=== PATIENT | male | born 1965 | race Caucasian/White ===

== ENCOUNTER 2021-04-11 19:28 | Inpatient (IN) ==
[2021-04-11 20:49] LABS: ABS Basophils 0.1 10^3/ul (0-0.2); ABS Monocytes 0.8 10^3/ul (0-0.8); ABS Neutrophils 5.2 10^3/ul (1.5-7.7); Eosinophil % 0.4 %; Hematocrit 40 % (42-52); Hemoglobin 13.3 g/dL (14.0-18.0); Lymphocyte % 14.7 %; Mean Corpuscular HGB Conc 33 g/dL (31-36); Mean Corpuscular Hemoglobin 28 pg (27-31); Mean Corpuscular Volume 84 fL (80-94); Mean Platelet Volume 7.3 fL (7.4-10.4); Platelet Count 292 10^3/uL (150-450); Red Blood Count 4.76 10^6 /uL (4.18-5.48); Red Cell Distribution Width 18 % (10-15); White Blood Count 7.1 10^3/uL (3.5-10.8)
[2021-04-11 21:39] LABS: TSH Ultra Thyroid Stim Horm 3.43 mcIU/mL (0.34-5.60)
[2021-04-11 21:51] LABS: Alcohol, S < 13 mg/dL (<13); Salicylate < 2.50 mg/dL (<30)
[2021-04-11 22:10] LABS: ALT 17 U/L (7-52); AST 21 U/L (13-39); Albumin/Globulin Ratio 1.3 (1-3); Alkaline Phosphatase 118 U/L (35-149); Anion Gap 14 mmol/L (2-11); Blood Urea Nitrogen 8 mg/dL (6-24); CO2 Carbon Dioxide 25 mmol/L (22-32); Calcium 9.8 mg/dL (8.6-10.3); Chloride 98 mmol/L (101-111); Globulin 3.1 g/dL (2-4); Glucose 107 mg/dL (70-100); Potassium 3.2 mmol/L (3.5-5.0); Sodium 137 mmol/L (135-145); Total Protein 7.1 g/dL (6.4-8.9)
[2021-04-11 22:12] LABS: Acetaminophen < 15 mcg/mL
[2021-04-12 04:47] LABS: Urine Appearance Clear; Urine Bilirubin Negative (Negative); Urine Blood Negative (Negative); Urine Color Amber; Urine Glucose Negative (Negative); Urine Ketones 1+ (Negative); Urine Nitrite Negative (Negative); Urine Protein 1+(30 mg/dL) (Negative); Urine Specific Gravity 1.017 (1.002-1.030); Urine Urobilinogen Negative (Negative)
[2021-04-12 04:51] LABS: Urine Bacteria 1+ (Absent); Urine Red Blood Cell 1+(3-5/hpf) (Absent); Urine Squamous Epithelial Cell Present (Absent); Urine White Blood Cell Trace(0-5/hpf) (Absent)
[2021-04-12 05:23] LABS: Urine Benzodiazepine Screen Presumptive Positive (None Detect); Urine Cannabinoids Screen None Detected (None Detect); Urine Opiates Screen None Detected (None Detect)
[2021-04-12] MEDS ORDERED: Al Hydrox/Mg Hydrox/Simet LIQ 30 ML UDC PO PRN (09:05)
[2021-04-12 09:59] LABS: Rapid COVID-19 Molecular Undetected (Undetected)
[2021-04-12] MEDS: oxyCODONE SR 15 mg TAB PO SCH (20:56)
[2021-04-13 08:04] LABS: HDL Cholesterol 50.2 mg/dL
[2021-04-13] MEDS: oxyCODONE SR 15 mg TAB PO SCH ×3 (08:26→19:17)
[2021-04-13] MEDS: Nicotine GUM 2MG FRUIT FLAVOR PO PRN ×4 (11:00→22:18)
[2021-04-13] MEDS ORDERED: Benzocaine (DENTAL) 10% TOP.GEL TOPICAL PRN (11:44)
[2021-04-14] MEDS: oxyCODONE SR 15 mg TAB PO SCH ×2 (07:41→19:26)
[2021-04-14] MEDS: Nicotine GUM 2MG FRUIT FLAVOR PO PRN ×5 (08:25→19:28)
[2021-04-14] MEDS ORDERED: DULoxetine DR 30 mg CAP PO SCH (09:00)
[2021-04-15] MEDS: DULoxetine DR 60 mg CAP PO SCH (07:44)
[2021-04-15] MEDS: oxyCODONE SR 15 mg TAB PO SCH ×2 (07:44→20:18)
[2021-04-15] MEDS: Nicotine GUM 2MG FRUIT FLAVOR PO PRN ×4 (07:47→19:07)
[2021-04-15] MEDS ORDERED: Nicotine PATCH 21 MG/24 HR PATCH ONE (14:12)
[2021-04-15] MEDS: Nicotine PATCH 21 MG/24 HR PATCH TRANSDERM SCH (17:06)
[2021-04-16] MEDS: Nicotine GUM 2MG FRUIT FLAVOR PO PRN ×6 (06:39→22:02)
[2021-04-16] MEDS: Nicotine PATCH 21 MG/24 HR PATCH TRANSDERM SCH (07:41)
[2021-04-16] MEDS: oxyCODONE SR 15 mg TAB PO SCH ×2 (07:41→20:02)
[2021-04-16] MEDS: DULoxetine DR 60 mg CAP PO SCH (07:42)
[2021-04-17] MEDS: Nicotine GUM 2MG FRUIT FLAVOR PO PRN ×3 (02:17→11:06)
[2021-04-17] MEDS: Nicotine PATCH 21 MG/24 HR PATCH TRANSDERM SCH (07:04)
[2021-04-17] MEDS: DULoxetine DR 60 mg CAP PO SCH (07:49)
[2021-04-17] MEDS: oxyCODONE SR 15 mg TAB PO SCH (07:49)
[2021-04-17 08:11] VITALS: BP 158/83
== END 2021-04-17 15:19 | disposition home or self-care (01) | DRG 751 ==
LOC: ED 19:28 → BSU 04-12 09:05
PROVIDERS: ADMIT Psychiatry & Neurology Psychiatry; ATTEND Psychiatry & Neurology Psychiatry

== ENCOUNTER 2023-11-28 12:59 | Inpatient (IN) ==
[2023-11-28 15:04] LABS: ABS Lymphocytes 0.6 10^3/uL (1.0-4.8); ABS Monocytes 1.1 10^3/uL (0.0-1.1); ABS Neutrophils 6.2 10^3/uL (1.5-7.6); ABS Nucleated RBC 0.01 10^3/ul; Eosinophil % 0.1 %; Hematocrit 43.1 % (38-53); Hemoglobin 14.3 g/dL (13.2-16.3); Lymphocyte % 7.5 %; Mean Corpuscular Hemoglobin 31.2 pg (27-33); Mean Corpuscular Hgb Conc 33.2 g/dL (31-36); Mean Corpuscular Volume 94.1 fL (80-97); Nucleated Red Blood Cells % 0.1 %/100WBC (0.0-0.8); Platelet Count 327 10^3/uL (150-450); Red Blood Count 4.59 10^6/uL (4.06-5.63); Red Cell Distribution Width 14.8 % (12-17)
[2023-11-28 15:37] LABS: ALT 16 U/L (7-52); AST 25 U/L (13-39); Acetaminophen < 15 mcg/mL; Albumin/Globulin Ratio 1.5 (1-3); Alcohol, S < 13 mg/dL (<13); Alkaline Phosphatase 133 U/L (35-149); Anion Gap 13 mmol/L (2-16); Blood Urea Nitrogen 17 mg/dL (6-24); CO2 Carbon Dioxide 26 mmol/L (22-32); Calcium 9.2 mg/dL (8.6-10.3); Chloride 103 mmol/L (101-111); Globulin 2.6 g/dL (2-4); Glucose 117 mg/dL (70-100); Potassium 3.2 mmol/L (3.5-5.0); Salicylate < 2.50 mg/dL (<30); Sodium 142 mmol/L (135-145); Total Bilirubin 0.6 mg/dL (0.2-1.0); Total Protein 6.6 g/dL (6.4-8.9); eGFR CKD-EPI 62.9 (>60)
[2023-11-28 15:39] LABS: TSH Ultra Thyroid Stim Horm 4.29 mcIU/mL (0.34-5.60)
[2023-11-28 15:46] LABS: Urine Appearance Clear; Urine Bilirubin Negative (Negative); Urine Blood Trace (Negative); Urine Color Yellow; Urine Glucose Negative (Negative); Urine Ketones Trace (Negative); Urine Nitrite Negative (Negative); Urine Protein Trace (Negative); Urine Specific Gravity 1.024 (1.002-1.030); Urine Urobilinogen Negative (Negative); Urine pH 5.5 (5.0-8.0)
[2023-11-28 16:57] LABS: Urine Benzodiazepine Screen Presumptive Positive (None Detect); Urine Cannabinoids Screen None Detected (None Detect); Urine Opiates Screen None Detected (None Detect)
[2023-11-28] MEDS ORDERED: Haloperidol 5 mg/ml SDV IV/IM 5 MG/ML AMP ONE (19:27)
[2023-11-28] MEDS: Haloperidol 5 mg/ml SDV IV/IM 5 MG/ML AMP IV SLOW PU ONE (19:34)
[2023-11-29] MEDS: Vitamin THERAPEUTIC TAB PO SCH (10:29)
[2023-11-29] MEDS: Potassium Chlor 20 meq TAB.ER PO ONE (14:19)
[2023-11-29] MEDS: CMC:Doxepin 25 mg CAP (NF) PO SCH (22:13)
[2023-11-30 08:14] LABS: HDL Cholesterol 50.3 mg/dL
[2023-12-02] MEDS: Al Hydrox/Mg Hydrox/Simet LIQ 30 ML UDC PO PRN (11:27)
[2023-12-03] MEDS: Nicotine Lozenge mini 4 MG LOZNG.MINI MT PRN (14:19)
[2023-12-03 17:56] LABS: ABS Basophils 0.1 10^3/uL (0.0-0.1); ABS Eosinophils 0.1 10^3/uL (0.0-0.5); ABS Lymphocytes 1.2 10^3/uL (1.0-4.8); ABS Monocytes 0.6 10^3/uL (0.0-1.1); ABS Neutrophils 3.8 10^3/uL (1.5-7.6); ABS Nucleated RBC 0.01 10^3/ul; Eosinophil % 1.6 %; Hemoglobin 15.1 g/dL (13.2-16.3); Lymphocyte % 20.2 %; Mean Corpuscular Hemoglobin 31.2 pg (27-33); Mean Corpuscular Hgb Conc 32.9 g/dL (31-36); Mean Platelet Volume 6.9 fL (7.5-11.2); Nucleated Red Blood Cells % 0.2 %/100WBC (0.0-0.8); Platelet Count 363 10^3/uL (150-450); Red Blood Count 4.84 10^6/uL (4.06-5.63); Red Cell Distribution Width 14.6 % (12-17); White Blood Count 5.7 10^3/uL (3.6-10.2)
[2023-12-03 18:54] LABS: Calcium 9.1 mg/dL (8.6-10.3); Creatinine, Serum 0.81 mg/dL (0.67-1.17); Magnesium 1.8 mg/dL (1.9-2.7); Potassium 4.2 mmol/L (3.5-5.0); eGFR CKD-EPI 100.9 (>60)
[2023-12-05] MEDS: CMCS: Doxepin 25 mg CAP (NF) PO SCH (20:44)
[2023-12-11] MEDS: CMCS:Doxepin 25 mg CAP (NF) PO SCH (20:14)
[2023-12-13] MEDS: Nicotine PATCH 14 MG/24 HR PATCH TRANSDERM SCH (08:28)
[2023-12-17] MEDS: OLANZapine 10 mg TAB*ODT PO ONE (04:43)
[2023-12-17] MEDS: OLANZapine 10 mg TAB*ODT ONE (05:22)
[2023-12-17] MEDS ORDERED: Doxepin 3 mg TAB (NF) PO SCH (21:00)
[2023-12-17] MEDS: CMCS:Doxepin 10 mg CAP (NF) PO SCH (21:14)
[2023-12-18] MEDS: OLANZapine 5 mg TAB *ODT PO PRN (01:13)
[2023-12-20] MEDS: Nicotine PATCH 7 MG/24 HR PATCH TRANSDERM SCH (08:25)
[2023-12-26 08:14] VITALS: BP 128/85
== END 2023-12-27 13:15 | disposition home or self-care (01) | DRG 751 ==
LOC: ED 12:59 → EDHOLD 18:26 → BSU 19:12
PROVIDERS: ADMIT Psychiatry & Neurology Psychiatry; ATTEND Psychiatry & Neurology Psychiatry

== ENCOUNTER 2023-12-30 16:18 | Inpatient (IN) ==
[2023-12-30 20:17] LABS: Urine Benzodiazepine Screen Presumptive Positive (None Detect); Urine Cannabinoids Screen None Detected (None Detect); Urine Opiates Screen None Detected (None Detect)
[2023-12-30 23:23] LABS: ABS Basophils 0.1 10^3/uL (0.0-0.1); ABS Eosinophils 0.1 10^3/uL (0.0-0.5); ABS Lymphocytes 1.2 10^3/uL (1.0-4.8); ABS Neutrophils 3.4 10^3/uL (1.5-7.6); Eosinophil % 2.2 %; Hematocrit 33.9 % (38-53); Hemoglobin 11.5 g/dL (13.2-16.3); Lymphocyte % 21.1 %; Mean Corpuscular Hemoglobin 30.9 pg (27-33); Mean Corpuscular Hgb Conc 33.9 g/dL (31-36); Mean Corpuscular Volume 91.1 fL (80-97); Mean Platelet Volume 7.1 fL (7.5-11.2); Platelet Count 215 10^3/uL (150-450); Red Blood Count 3.72 10^6/uL (4.06-5.63); Red Cell Distribution Width 14.1 % (12-17); White Blood Count 5.8 10^3/uL (3.6-10.2)
[2023-12-30 23:32] LABS: Urine Appearance Clear; Urine Bilirubin Negative (Negative); Urine Blood Negative (Negative); Urine Color Colorless; Urine Glucose Negative (Negative); Urine Ketones Trace (Negative); Urine Nitrite Negative (Negative); Urine Protein Negative (Negative); Urine Specific Gravity 1.005 (1.002-1.030); Urine Urobilinogen Negative (Negative)
[2023-12-31 00:09] LABS: ALT 10 U/L (7-52); AST 19 U/L (13-39); Acetaminophen < 15 mcg/mL; Albumin/Globulin Ratio 1.2 (1-3); Alcohol, S < 13 mg/dL (<13); Alkaline Phosphatase 116 U/L (35-149); Anion Gap 10 mmol/L (2-16); Blood Urea Nitrogen 7 mg/dL (6-24); CO2 Carbon Dioxide 27 mmol/L (22-32); Calcium 8.3 mg/dL (8.6-10.3); Chloride 103 mmol/L (101-111); Globulin 2.5 g/dL (2-4); Glucose 55 mg/dL (70-100); Potassium 3.5 mmol/L (3.5-5.0); Salicylate < 2.50 mg/dL (<30); Sodium 140 mmol/L (135-145); Total Bilirubin 0.4 mg/dL (0.2-1.0); Total Protein 5.5 g/dL (6.4-8.9); eGFR CKD-EPI 101.3 (>60)
[2023-12-31 00:23] LABS: TSH Ultra Thyroid Stim Horm 4.39 mcIU/mL (0.34-5.60)
[2023-12-31 08:24] LABS: HDL Cholesterol 35.2 mg/dL
[2023-12-31] MEDS: Vitamin THERAPEUTIC TAB PO SCH (08:36)
[2023-12-31] MEDS: Nicotine GUM 4MG FRUIT FLAVOR PO PRN (09:27)
[2023-12-31] MEDS: Nicotine GUM 2MG FRUIT FLAVOR PO PRN (15:49)
[2023-12-31] MEDS: Nicotine Lozenge mini 2 MG LOZNG.MINI MT PRN (19:46)
[2024-01-01] MEDS: Al Hydrox/Mg Hydrox/Simet LIQ 30 ML UDC PO PRN (04:02)
[2024-01-05 07:45] LABS: ABS Eosinophils 0.1 10^3/uL (0.0-0.5); ABS Lymphocytes 1.6 10^3/uL (1.0-4.8); ABS Monocytes 0.7 10^3/uL (0.0-1.1); ABS Neutrophils 4.1 10^3/uL (1.5-7.6); ABS Nucleated RBC 0.01 10^3/ul; Hematocrit 38.3 % (38-53); Hemoglobin 12.8 g/dL (13.2-16.3); Lymphocyte % 24.3 %; Mean Corpuscular Hemoglobin 30.9 pg (27-33); Mean Corpuscular Hgb Conc 33.5 g/dL (31-36); Mean Corpuscular Volume 92.3 fL (80-97); Mean Platelet Volume 7.1 fL (7.5-11.2); Nucleated Red Blood Cells % 0.1 %/100WBC (0.0-0.8); Platelet Count 273 10^3/uL (150-450); Red Blood Count 4.15 10^6/uL (4.06-5.63); Red Cell Distribution Width 14.6 % (12-17); White Blood Count 6.7 10^3/uL (3.6-10.2)
[2024-01-05 08:20] LABS: Albumin 3.4 g/dL (3.2-5.2); Albumin/Globulin Ratio 1.3 (1-3); Calcium 8.6 mg/dL (8.6-10.3); Creatinine, Serum 0.77 mg/dL (0.67-1.17); Globulin 2.6 g/dL (2-4); Lithium 0.5 mmol/L (0.6-1.2); Magnesium 1.9 mg/dL (1.9-2.7); Potassium 4.4 mmol/L (3.5-5.0); Total Bilirubin 0.4 mg/dL (0.2-1.0); eGFR CKD-EPI 102.5 (>60)
[2024-01-06] MEDS: Lithium Carbonate ER 450mg TAB PO SCH (21:00)
[2024-01-12] MEDS: Lithium Carbonate ER 450mg TAB PO SCH (20:26)
[2024-01-16 10:17] VITALS: BP 133/84
== END 2024-01-16 16:40 | disposition home or self-care (01) | DRG 751 ==
LOC: ED 16:18 → EDHOLD 22:33 → BSU 22:52
PROVIDERS: ADMIT Student in an Organized Health Care Education/Training Program; ATTEND Psychiatry & Neurology Psychiatry